=== PATIENT | male | born 1960 | race Caucasian/White ===

== ENCOUNTER → 2017-02-08 | Outpatient (CLI) | payer BC, OTHER ==
[~2017-02-08] MED LIST: ACETAMINOPHEN-120 ML PO; ALEVE220 MG PO; ANTARA43 MG PO; ASPIRIN EC81 M1 PO; ATIVAN1 MG PO; BENICAR HCT 401 EACH PO; CARDIZEM CD240 MG PO; CORTIZONE-1028 GM TOP; COUMADIN 10MG T10 M1 PO; COUMADIN 2 MG TA2 M1; JANTOVEN5 MG PO; NIASPAN 500 MG500 M1 PO; PRAVASTATIN SOD40 MG PO; PREDNISONE 20 M20 M1 PO; PREDNISONE50 MG PO; SINGULAIR 10 MG10 M1 PO; TRILIPIX135 MG PO; VENTOLIN17 GM INH
== END ==
LOC: CAT 11:19
DX: Z13.6 Encounter for screening for cardiovascular disorders (principal)

== ENCOUNTER → 2020-11-03 | Outpatient (CLI) | payer OTHER | LOC: CAT 14:37 | PROVIDERS: ATTEND Internal Medicine Cardiovascular Disease | DX: Z13.6 Encounter for screening for cardiovascular disorders (principal); I25.10 Atherosclerotic heart disease of native coronary artery without angina pectoris; E78.00 Pure hypercholesterolemia, unspecified ==

== ENCOUNTER → 2021-09-27 | Outpatient (CLI) | payer BC, OTHER | LOC: SJCVCIMAG 14:23 | PROVIDERS: ATTEND Internal Medicine Cardiovascular Disease | DX: I35.1 Nonrheumatic aortic (valve) insufficiency (principal); I25.10 Atherosclerotic heart disease of native coronary artery without angina pectoris ==